=== PATIENT | female | born 1980 | race Caucasian/White ===

== ENCOUNTER 2016-09-17 03:53 | Observation (INO) | payer OTHER ==
[~2016-09-17] VITALS: Ht 165.1 cm; Wt 131.5 kg
[2016-09-17 05:03] LABS: HEMOGLOBIN 15.3 gm/dl (12.3-15.3); RED BLOOD COUNT 5.04 M/UL (4.00-5.10); WHITE BLOOD COUNT 11.6 K/UL (4.5-11.0)
[2016-09-17 05:25] LABS: BUN/CREATININE RATIO 9 (0-10)
[2016-09-17] MEDS ORDERED: CYMBALTA30 MG PO (12:06)
[2016-09-17] MEDS ORDERED: LINZESS145 MCG PO (12:08)
[2016-09-17] MEDS ORDERED: HYDROCODON-ACE1 EAC2 PO (12:08)
[2016-09-17] MEDS ORDERED: NEURONTIN 400400 MG PO (12:09)
[2016-09-17] MEDS ORDERED: ESTRACE2 MG PO (12:09)
[2016-09-18 05:38] LABS: HEMOGLOBIN 11.9 gm/dl (12.3-15.3); WHITE BLOOD COUNT 6.2 K/UL (4.5-11.0)
[2016-09-18 05:44] LABS: BUN/CREATININE RATIO 6 (0-10)
[2016-09-18] MEDS ORDERED: MIRALAX PACK 171 PKT PO (16:22)
== END 2016-09-18 17:30 | disposition home or self-care (01) ==
LOC: ER1 03:53 → ZEROF 06:08 → MED SURG 4 06:08
PROVIDERS: Physician Assistant; Surgery; ADMIT Internal Medicine
DX: K59.00 Constipation, unspecified (principal); R10.10 Upper abdominal pain, unspecified; R11.2 Nausea with vomiting, unspecified; M51.36 Other intervertebral disc degeneration, lumbar region; F41.9 Anxiety disorder, unspecified; F32.9 Major depressive disorder, single episode, unspecified; G89.29 Other chronic pain; Z90.49 Acquired absence of other specified parts of digestive tract; Z90.710 Acquired absence of both cervix and uterus; Z79.891 Long term (current) use of opiate analgesic; Z79.899 Other long term (current) drug therapy; Z88.2 Allergy status to sulfonamides; Z88.5 Allergy status to narcotic agent; Z88.1 Allergy status to other antibiotic agents; Z82.49 Family history of ischemic heart disease and other diseases of the circulatory system
CPT/HCPCS: 36415; 74000; 80048; 80053; 83605; 83690; 85025; 85027; 96365; 96375; 96376; 99285; C9113; G0378; J1885; J2405; J2550; J7050; Q9962

== ENCOUNTER → 2020-07-26 | Outpatient (CLI) | payer MEDICARE ==
[~2020-07-26] MED LIST: ANTIVERT 25MG T25 MG PO; BENADRYL 25MG C25 MG PO; CYMBALTA60 MG PO; ESTRACE2 MG PO; HYDROCODON-ACE1 EAC2 PO; IBUPROFEN800 MG PO; LINZESS145 MCG PO; MIRALAX PACK 171 PKT PO; NEURONTIN 400400 MG PO; NORCO 5-325 TA1 EACH PO; OMEPRAZOLE40 MG PO; PREDNISONE 50 M50 MG PO; ROBAXIN-750750 MG PO; ULTRAM50 MG PO; ZOFRAN ODT 4 MG4 MG SL; ZOFRAN4 MG PO
== END ==
LOC: CT 08:37
DX: R10.13 Epigastric pain (principal); K83.8 Other specified diseases of biliary tract
CPT/HCPCS: 74160; Q9967

== ENCOUNTER → 2020-08-06 | Outpatient (CLI) | payer MEDICARE | LOC: OPSV 09:00 | DX: K59.00 Constipation, unspecified (principal) | CPT/HCPCS: G0463 ==

== ENCOUNTER → 2021-09-13 | Outpatient (CLI) | payer MEDICARE | LOC: ECHO 08-12 09:00 | DX: R01.0 Benign and innocent cardiac murmurs (principal); I07.1 Rheumatic tricuspid insufficiency | CPT/HCPCS: ECHO; 93306 ==